=== PATIENT | female | born 1945 | race Caucasian/White ===

== ENCOUNTER → 2016-04-18 | Outpatient (CLI) | payer MEDICARE ==
[~2016-04-18] MED LIST: AMLO10TA2 PO; ASPI81TA60 PO; Areds OR; CALC600T57 PO; CLAR10CA3 PO; COLA100C PO; DULO30CA PO; FIBE625T PO; GLUC1CAP9 PO; IRBE300T12 PO; LUTE20TA PO; MACR100C3 PO; NEXI40CA PO; PERC5TAB6 PO; TYLE1TAB5 PO; TYLE650T25 PO; antihistamine OR; magnesium OR; multivitamin OR
--- NOTE | 2016-04-18 12:48 | REP ---
RENAL AND BLADDER ULTRASOUND: Real-time sonographic evaluation of the kidneys performed and demonstrates both kidneys to be normal in size and echotexture, right kidney meauring 10.1 x 5.6 x 3.5 cm and the left kidney 11.2 x 4.2 x 4.6 cm. There is no hydronephrosis bilaterally. A cyst in the upper pole on the right measures 2.4 x 2.0 x 2.4 cm. There are multiple left renal cysts, the largest is in the upper pole measuring 5.1 cm in maximal diameter. Another upper pole cyst measures 2.2 cm maximally, and two lower pole cysts are seen measuring 2.0 and 1.8 cm in diameter. Urinary bladder is not well distended and not optimally evaluated meauring 4.2 x 6.8 x 2.9 cm. Total volume is 43 mL. Doppler color evaluation demonstrates a left ureteral jet. A right ureteral jet is not visualized. IMPRESSION: No hydronephrosis bilaterally. Stable right renal cyst. Multiple left renal cysts may be slightly increased in size compared to the prior exam of 03/05/2015. Signed by Young Jensen MD 04/18/2016 05:04 P
== END | disposition home or self-care (01) ==
LOC: M SMT 10:52
PROVIDERS: ATTEND Nurse Practitioner Women's Health
DX: N28.1 Cyst of kidney, acquired (principal)

== ENCOUNTER → 2016-05-17 | Outpatient (CLI) | payer MEDICARE ==
--- NOTE | 2016-05-17 12:04 | REP ---
Clinical: Tendonitis. Technique: Internal rotation, external rotation, and Y view. Findings: The acromioclavicular joint demonstrates cortical irregularity and inferior sloping with decrease subacromial space. The glenoid and humeral head appear relatively normal. No acute fracture or dislocation. No periarticular calcifications. Impression: Degenerative changes as described above.
== END ==
LOC: M CLY 11:19
PROVIDERS: ATTEND Family Medicine
DX: M75.22 Bicipital tendinitis, left shoulder (principal); M75.42 Impingement syndrome of left shoulder; M19.012 Primary osteoarthritis, left shoulder
CPT/HCPCS: 73030; G0463

== ENCOUNTER → 2016-10-18 | Outpatient (REF) | payer MEDICARE ==
[~2016-10-18] MED LIST changes: -COLA100C PO; +COLA100C5 PO; -MACR100C3 PO; +MACR100C43 PO; +PERC5TAB12 PO; -PERC5TAB6 PO
[2016-10-19 12:02] LABS: ALBUMIN/GLOBULIN RATIO 1.05 (1.00-1.93); ALKALINE PHOSPHATASE 96 U/L (45-117); ALT/SGPT 21 U/L (12-78); ANION GAP 8 MEQ/L (8-16); AST/SGOT 16 U/L (15-37); BILIRUBIN,TOTAL 0.5 MG/DL (0.2-1.0); BLOOD UREA NITROGEN 19 MG/DL (7-18); CALCIUM LEVEL 9.4 MG/DL (8.8-10.2); CARBON DIOXIDE LEVEL 31 MEQ/L (21-32); CHLORIDE LEVEL 101 MEQ/L (98-107); CHOLESTEROL LEVEL 223 MG/DL (<200); CREATININE FOR GFR 0.78 MG/DL (0.55-1.02); GLOMERULAR FILTRATION RATE > 60.0 (>39); GLUCOSE, FASTING 94 MG/DL (83-110); POTASSIUM SERUM 3.8 MEQ/L (3.5-5.1); SODIUM LEVEL 140 MEQ/L (136-145); TOTAL PROTEIN 7.8 GM/DL (6.4-8.2); TRIGLYCERIDES LEVEL 286 MG/DL (<150); WHITE BLOOD COUNT 9.8 K/mm3 (4.0-10.0)
[2016-10-19 12:03] LABS: BASO # 0.1 K/mm3 (0.0-0.2); BASO % 0.6 % (0.0-1.0); EOS # 0.2 K/mm3 (0.0-0.50); EOS % 2.3 % (0.0-3.0); LARGE UNSTAINED CELL # 0.1 K/mm3 (0.0-0.4); LYMPH # 2.5 K/mm3 (1.5-4.5); LYMPH % 24.4 % (24.0-44.0); MEAN CORPUSCULAR HEMOGLOBIN 30.4 pg (27.0-33.0); MEAN CORPUSCULAR HGB CONC 34.5 g/dl (32.0-36.5); MONO # 0.5 K/mm3 (0.0-0.8); MONO % 5.2 % (0.0-5.0); NEUTROPHILS # 6.5 K/mm3 (1.8-7.7); NEUTROPHILS % 66.4 % (36.0-66.0); PLATELET COUNT, AUTOMATED 328 k/mm3 (150-450); RED CELL DISTRIBUTION WIDTH 13.6 % (11.5-14.5)
== END ==
LOC: M SFHCCLAY 14:45
PROVIDERS: ATTEND Family Medicine
DX: D50.0 Iron deficiency anemia secondary to blood loss (chronic) (principal); I10 Essential (primary) hypertension; E55.9 Vitamin D deficiency, unspecified

== ENCOUNTER → 2017-06-29 | Outpatient (REF) | payer MEDICARE | LOC: M SFHCCLAY 16:58 | DX: L57.0 Actinic keratosis (principal) | CPT/HCPCS: 88305 ==

== ENCOUNTER → 2017-10-20 | Outpatient (REF) | payer MEDICARE ==
[2017-10-20 17:08] LABS: BASO % 0.3 % (0.0-1.0); EOS # 0.1 10^3/uL (0.0-0.50); HEMATOCRIT 40.6 % (36.0-47.0); HEMOGLOBIN 13.4 g/dl (12.0-15.5); IMMATURE GRANULOCYTE % 0.7 % (0-3.0); LYMPH # 2.5 10^3/uL (1.5-4.5); LYMPH % 35.1 % (24.0-44.0); MEAN CORPUSCULAR HEMOGLOBIN 29.6 pg (27.0-33.0); MEAN CORPUSCULAR VOLUME 89.6 fl (80.0-96.0); MONO # 0.7 10^3/uL (0.0-0.8); MONO % 9.8 % (0.0-5.0); NEUTROPHILS # 3.7 10^3/uL (1.8-7.7); NEUTROPHILS % 52.1 % (36.0-66.0); PLATELET COUNT, AUTOMATED 298 10^3/uL (150-450); RED BLOOD COUNT 4.53 10^6/uL (4.00-5.40); RED CELL DISTRIBUTION WIDTH 13.4 % (11.5-14.5); WHITE BLOOD COUNT 7.1 10^3/uL (4.0-10.0)
[2017-10-20 17:10] LABS: ALBUMIN 3.8 GM/DL (3.2-5.2); ALBUMIN/GLOBULIN RATIO 1.03 (1.00-1.93); ALKALINE PHOSPHATASE 84 U/L (45-117); ALT/SGPT 21 U/L (12-78); ANION GAP 6 MEQ/L (8-16); AST/SGOT 12 U/L (7-37); BILIRUBIN,TOTAL 0.3 MG/DL (0.2-1.0); BLOOD UREA NITROGEN 18 MG/DL (7-18); CALCIUM LEVEL 9.2 MG/DL (8.8-10.2); CARBON DIOXIDE LEVEL 33 MEQ/L (21-32); CHLORIDE LEVEL 102 MEQ/L (98-107); CREATININE FOR GFR 0.76 MG/DL (0.55-1.30); GLOMERULAR FILTRATION RATE > 60.0 (>39); GLUCOSE, FASTING 99 MG/DL (70-100); IRON (FE) 74 UG/DL (50-170); POTASSIUM SERUM 4.1 MEQ/L (3.5-5.1); SODIUM LEVEL 141 MEQ/L (136-145); TOTAL PROTEIN 7.5 GM/DL (6.4-8.2)
== END ==
LOC: M SFHCCLAY 11:32
DX: D50.0 Iron deficiency anemia secondary to blood loss (chronic) (principal); I10 Essential (primary) hypertension
CPT/HCPCS: 83540

== ENCOUNTER → 2018-10-08 | Outpatient (REF) | payer MEDICARE ==
[~2018-10-08] MED LIST changes: -AMLO10TA2 PO; +AMLO10TA5 PO; -DULO30CA PO; +DULO30CA9 PO
[2018-10-09 13:04] LABS: BASO % 0.2 % (0.0-1.0); EOS # 0.1 10^3/uL (0.0-0.50); EOS % 1.6 % (0.0-3.0); HEMOGLOBIN 13.9 g/dl (12.0-15.5); LYMPH # 2.9 10^3/uL (1.5-4.5); LYMPH % 33.3 % (24.0-44.0); MEAN CORPUSCULAR HEMOGLOBIN 30.5 pg (27.0-33.0); MEAN CORPUSCULAR HGB CONC 33.9 g/dl (32.0-36.5); MEAN CORPUSCULAR VOLUME 90.1 fl (80.0-96.0); MONO # 0.6 10^3/uL (0.0-0.8); MONO % 7.2 % (0.0-5.0); NEUTROPHILS # 4.9 10^3/uL (1.8-7.7); NEUTROPHILS % 57.2 % (36.0-66.0); PLATELET COUNT, AUTOMATED 318 10^3/uL (150-450); RED BLOOD COUNT 4.55 10^6/uL (4.00-5.40); WHITE BLOOD COUNT 8.6 10^3/uL (4.0-10.0)
[2018-10-09 14:03] LABS: ALT/SGPT 20 U/L (12-78); BILIRUBIN,TOTAL 0.2 MG/DL (0.2-1.0); BLOOD UREA NITROGEN 21 MG/DL (7-18); CALCIUM LEVEL 9.7 MG/DL (8.8-10.2); CARBON DIOXIDE LEVEL 31 MEQ/L (21-32); CHLORIDE LEVEL 103 MEQ/L (98-107); CREATININE FOR GFR 0.82 MG/DL (0.55-1.30); GLOMERULAR FILTRATION RATE > 60.0 (>39); GLUCOSE, FASTING 95 MG/DL (70-100); IRON (FE) 57 UG/DL (50-170); POTASSIUM SERUM 4.6 MEQ/L (3.5-5.1); SODIUM LEVEL 141 MEQ/L (136-145); THYROID STIMULATING HORMONE 0.874 uIU/ML (0.358-3.740); THYROXINE (T4) 6.4 UG/DL (4.5-12.0); TOTAL PROTEIN 7.9 GM/DL (6.4-8.2)
== END ==
LOC: M SFHCCLAY 15:29
PROVIDERS: ATTEND Family Medicine
DX: D50.0 Iron deficiency anemia secondary to blood loss (chronic) (principal); E55.9 Vitamin D deficiency, unspecified; I10 Essential (primary) hypertension; F41.8 Other specified anxiety disorders
CPT/HCPCS: 80053; 82652; 83540; 84436; 84443; 85025; G0463

== ENCOUNTER → 2020-06-05 | Outpatient (CLI) | payer MEDICARE ==
[~2020-06-05] MED LIST changes: -AMLO10TA5 PO; +AMLO1TAB25 PO
--- NOTE | 2020-06-05 15:36 | REP ---
INDICATION: RIB INJURY COMPARISON: None. TECHNIQUE: Frontal view of the chest with multiple views of the right hemithorax. FINDINGS: Frontal view of the chest demonstrates no acute cardiopulmonary process, contusion, effusion, or pneumothorax. Multiple views of the hemithorax demonstrates no acute rib fracture/injury or pathology. IMPRESSION: Normal rib series. <Electronically signed by Escobar Guo > 06/05/20 [id number]
== END ==
LOC: M CLY 15:01
PROVIDERS: ATTEND Physician Assistant
DX: S29.9XXA Unspecified injury of thorax, initial encounter (principal); X58.XXXA Exposure to other specified factors, initial encounter; Y92.9 Unspecified place or not applicable; Y99.9 Unspecified external cause status

== ENCOUNTER → 2021-03-08 | Outpatient (CLI) | payer MEDICARE ==
--- NOTE | 2021-03-08 14:46 | REP ---
INDICATION: M54.2 CERVICALGIA COMPARISON: None. TECHNIQUE: AP, lateral, flexion/extension, bilateral oblique, and open-mouth views. FINDINGS: Age-related osteopenia and mild multilevel degenerative changes include subtle marginal spurring. Disc spaces are relatively well maintained. There is no evidence for acute fracture/compression injury or subluxation. IMPRESSION: Age-related osteopenia and mild multilevel degenerative changes. <Electronically signed by Escobar Guo > 03/08/21 [id number]
== END ==
LOC: M CLY 14:20
PROVIDERS: ATTEND Family Medicine
DX: M85.88 Other specified disorders of bone density and structure, other site (principal); M54.2 Cervicalgia

== ENCOUNTER → 2021-03-08 | Outpatient (REF) | payer MEDICARE ==
[2021-03-09 12:01] LABS: BASO % 0.3 % (0.0-1.0); EOS # 0.2 10^3/uL (0.0-0.5); EOS % 1.9 % (0.0-3.0); HEMATOCRIT 39.5 % (36.0-47.0); LYMPH # 3.1 10^3/uL (1.5-5.0); LYMPH % 33.4 % (24.0-44.0); MEAN CORPUSCULAR HGB CONC 32.9 g/dl (32.0-36.5); MONO % 10.6 % (2.0-8.0); NEUTROPHILS # 4.9 10^3/uL (1.5-8.5); NEUTROPHILS % 53.5 % (36.0-66.0); PLATELET COUNT, AUTOMATED 340 10^3/uL (150-450); RED BLOOD COUNT 4.49 10^6/uL (4.00-5.40); WHITE BLOOD COUNT 9.1 10^3/uL (4.0-10.0)
[2021-03-09 12:26] LABS: ALBUMIN 3.7 GM/DL (3.2-5.2); ALT/SGPT 21 U/L (12-78); BILIRUBIN,TOTAL 0.3 MG/DL (0.2-1.0); BLOOD UREA NITROGEN 19 MG/DL (7-18); CALCIUM LEVEL 9.5 MG/DL (8.8-10.2); CARBON DIOXIDE LEVEL 30 MEQ/L (21-32); CHLORIDE LEVEL 102 MEQ/L (98-107); CHOLESTEROL LEVEL 212 MG/DL (<200); CHOLESTEROL RISK RATIO 3.854 (<5); CREATININE FOR GFR 0.77 MG/DL (0.55-1.30); GLOMERULAR FILTRATION RATE > 60.0 (>39); GLUCOSE, FASTING 101 MG/DL (70-100); HDL CHOLESTEROL 55 MG/DL (>40); LDL CHOLESTEROL 102 MG/DL (<100); NON-HDL-C 157 MG/DL; POTASSIUM SERUM 4.4 MEQ/L (3.5-5.1); SODIUM LEVEL 139 MEQ/L (136-145); TOTAL PROTEIN 7.6 GM/DL (6.4-8.2); TRIGLYCERIDES LEVEL 275 MG/DL (<150)
[2021-03-09 12:34] LABS: FOLATE > 24.0 NG/ML (>5.4); VITAMIN B12 LEVEL 959 PG/ML (247-911)
== END ==
LOC: M SFHCCLAY 14:13
PROVIDERS: ATTEND Family Medicine
DX: E78.2 Mixed hyperlipidemia (principal); G62.9 Polyneuropathy, unspecified

== ENCOUNTER 2022-12-08 10:04 | Day surgery (SDC) | payer MEDICARE ==
[~2022-12-08] VITALS: Ht 165.1 cm; Wt 73.5 kg
[~2022-12-08 10:04] MED LIST changes: +ASPI81TA26 PO; +BUSP1TAB PO; +CEFUROXIME 1MG/0.1ML INTRACAMERAL INJ As Ordered ONE; +CETI10CA13 PO; +DORZ1SOL4 OU; +LATA1DRO OU; +LIDOCAINE 1% SDV 5ML VIAL As Ordered ONE; +LIDOCAINE 3.5 % 1ML OPHTH TOPICAL GEL OU ONE; +MYRB50TA PO; +PROB250C PO; +mitoMYcin 0.2 MG/VIAL KIT FOR OPHTHALMIC USE As Ordered ONE
[2022-12-08] MEDS ORDERED: fentaNYL 100 MCG/2 ML INJECTION As Ordered ONE (12:14)
[2022-12-08] MEDS ORDERED: MIDAZOLAM INJ 2MG/2ML VIAL As Ordered ONE (12:14)
[2022-12-08] MEDS ORDERED: POVIDONE-IODINE 5% OPHTH PREP SOL 30ML As Ordered ONE (12:31)
[2022-12-08] MEDS ORDERED: TOBRADEX OPHTH OINT 3.5 GM As Ordered ONE (12:32)
[2022-12-08 13:06] VITALS: BP 146/67; TEMP 97.1; O2SAT 96
== END 2022-12-08 13:27 | disposition home or self-care (01) ==
LOC: M SDC 10:04
PROVIDERS: ATTEND Ophthalmology
DX: H40.812 Glaucoma with increased episcleral venous pressure, left eye (principal); I10 Essential (primary) hypertension; K21.9 Gastro-esophageal reflux disease without esophagitis; F41.9 Anxiety disorder, unspecified; F32.A Depression, unspecified; Z79.899 Other long term (current) drug therapy; Z79.82 Long term (current) use of aspirin; Z88.0 Allergy status to penicillin; Z88.2 Allergy status to sulfonamides
CPT/HCPCS: 66183; 93005; C1783; J2250; J3010; J7315

== ENCOUNTER 2023-05-03 11:17 | Day surgery (SDC) | payer MEDICARE ==
[~2023-05-03] VITALS: Ht 165.1 cm; Wt 69.4 kg
[~2023-05-03 11:17] MED LIST changes: +BACI1TAB20 PO; -CEFUROXIME 1MG/0.1ML INTRACAMERAL INJ As Ordered ONE; +GLUCTAB8 PO; +KP F1200 PO; -LIDOCAINE 1% SDV 5ML VIAL As Ordered ONE; -LIDOCAINE 3.5 % 1ML OPHTH TOPICAL GEL OU ONE; +MAGN400C PO; +MIDAZOLAM INJ 2MG/2ML VIAL As Ordered ONE; +PRES10CA2 PO; +THERTAB52 PO; +fentaNYL 100 MCG/2 ML INJECTION As Ordered ONE; -mitoMYcin 0.2 MG/VIAL KIT FOR OPHTHALMIC USE As Ordered ONE
[2023-05-03] MEDS: LIDOCAINE 3.5 % 1ML OPHTH TOPICAL GEL OU ONE (12:10)
[2023-05-03] MEDS: BSS IRRIG/VANCO(10MG)/TOBRA(5MG)/EPINEPH(1:1000-0.5CC)500ML BAG-ORONLY As Ordered ONE (13:38)
[2023-05-03] MEDS: LIDOCAINE 1% SDV 5ML VIAL As Ordered ONE (13:38)
[2023-05-03] MEDS: CEFUROXIME 1MG/0.1ML INTRACAMERAL INJ As Ordered ONE (13:38)
[2023-05-03 13:45] VITALS: BP 125/80; TEMP 98; O2SAT 96
== END 2023-05-03 14:00 | disposition home or self-care (01) ==
LOC: M SDC 11:17
PROVIDERS: ATTEND Ophthalmology
DX: H54.7 Unspecified visual loss (principal); I10 Essential (primary) hypertension; K21.9 Gastro-esophageal reflux disease without esophagitis; F41.9 Anxiety disorder, unspecified; F32.A Depression, unspecified; M19.041 Primary osteoarthritis, right hand; Z88.1 Allergy status to other antibiotic agents; Z88.0 Allergy status to penicillin; Z88.2 Allergy status to sulfonamides; Z79.899 Other long term (current) drug therapy
CPT/HCPCS: 65800; J0697; J2250; J3010

== ENCOUNTER 2023-10-05 05:54 | Day surgery (SDC) | payer MEDICARE ==
[~2023-10-05] VITALS: Ht 165.1 cm; Wt 69.9 kg
[~2023-10-05 05:54] MED LIST changes: +ACET650T61 PO; +AMLO1TAB24 PO; -MIDAZOLAM INJ 2MG/2ML VIAL As Ordered ONE; -fentaNYL 100 MCG/2 ML INJECTION As Ordered ONE
[2023-10-05] MEDS ORDERED: fentaNYL 100 MCG/2 ML INJECTION As Ordered ONE (07:12)
[2023-10-05] MEDS ORDERED: MIDAZOLAM INJ 2MG/2ML VIAL As Ordered ONE (07:12)
[2023-10-05] MEDS: LIDOCAINE 3.5 % 1ML OPHTH TOPICAL GEL OU ONE (07:15)
[2023-10-05] MEDS: BSS IRRIG/VANCO(10MG)/TOBRA(5MG)/EPINEPH(1:1000-0.5CC)500ML BAG-ORONLY As Ordered ONE (07:24)
[2023-10-05] MEDS: MOXIFLOXACIN 0.6MG/0.4ML INTRAOCULAR SYRINGE As Ordered ONE (07:35)
[2023-10-05] MEDS: LIDOCAINE 1% SDV 5ML VIAL As Ordered ONE (07:35)
[2023-10-05] MEDS ORDERED: LABETALOL 100MG/20ML VIAL As Ordered ONE (07:42)
[2023-10-05] MEDS: TOBRADEX OPHTH OINT 3.5 GM As Ordered ONE (07:45)
[2023-10-05 07:59] VITALS: BP 132/63; TEMP 97.2; O2SAT 98
== END 2023-10-05 08:17 | disposition home or self-care (01) ==
LOC: M SDC 05:54
PROVIDERS: ATTEND Ophthalmology
DX: H40.9 Unspecified glaucoma (principal); I10 Essential (primary) hypertension; K21.9 Gastro-esophageal reflux disease without esophagitis; K59.09 Other constipation; F41.9 Anxiety disorder, unspecified; F32.A Depression, unspecified; M19.041 Primary osteoarthritis, right hand; R35.0 Frequency of micturition; Z88.0 Allergy status to penicillin; Z88.2 Allergy status to sulfonamides; Z88.1 Allergy status to other antibiotic agents; Z79.899 Other long term (current) drug therapy; Z79.82 Long term (current) use of aspirin
CPT/HCPCS: 65920; 88300; J1920; J2250; J3010

== ENCOUNTER 2024-09-18 10:03 | Day surgery (SDC) | payer MEDICARE ==
[~2024-09-18] VITALS: Ht 165.1 cm; Wt 70.8 kg
[~2024-09-18 10:03] MED LIST changes: +LIDOCAINE 2% W/EPINEPHrine 20 ML VIAL **PRES FREE As Ordered ONE; +PANT40TA29 PO; +TOBRADEX OPHTH OINT 3.5 GM As Ordered ONE; +fentaNYL 100 MCG/2 ML INJECTION As Ordered ONE
[2024-09-18 11:40] VITALS: BP 155/67; TEMP 97.4; O2SAT 99
[2024-09-18] MEDS: LIDOCAINE 3.5% 1 ML OPHTH TOPICAL GEL OU ONE (11:45)
== END 2024-09-18 12:45 | disposition home or self-care (01) ==
LOC: M SDC 10:03
PROVIDERS: ATTEND Ophthalmology
DX: H40.9 Unspecified glaucoma (principal); Z53.9 Procedure and treatment not carried out, unspecified reason